=== PATIENT | female | born 1955 | race Caucasian/White ===

== ENCOUNTER 2018-12-30 08:00 | Outpatient (CLI) | payer MEDICAID | END 2018-12-30 10:00 | disposition home or self-care (01) | LOC: D.MAMMO 08:00 | PROVIDERS: ATTEND Family Medicine | DX: Z12.31 Encounter for screening mammogram for malignant neoplasm of breast (principal) ==

== ENCOUNTER 2019-02-17 09:00 | Outpatient (CLI) | payer MEDICAID | END 2019-02-17 10:00 | disposition home or self-care (01) | LOC: D.MAMMO 09:00 | PROVIDERS: ATTEND Family Medicine | DX: R92.8 Other abnormal and inconclusive findings on diagnostic imaging of breast (principal) ==

== ENCOUNTER 2020-03-01 09:57 | Day surgery (SDC) | payer MEDICAID ==
[~2020-03-01] VITALS: Ht 170.2 cm; Wt 125.0 kg
[2020-03-01 10:22] LABS: HEMATOCRIT 46.2 % (36.0-48.0); HEMOGLOBIN 15.7 g/dL (12-16); MCH 30.5 pg (26.0-34.0); MCV 89.7 fL (80.0-100.0); MEAN PLATELET VOLUME 9.1 fL (7.4-10.4); RBC 5.15 10x6/uL (4.00-5.40); RDW 13.4 % (11.5-14.5); WBC 8.2 10x3/uL (4.8-10.8)
[2020-03-01 10:28] LABS: ANION GAP 11.2 mmol/L (8-16); CALCIUM 8.8 mg/dL (8.5-10.1); CARBON DIOXIDE 27.5 mmol/L (21.0-32.0); POTASSIUM - SERUM 3.7 mmol/L (3.5-5.1)
[2020-03-01 11:17] VITALS: BP 175/83; Ht 170.2 cm; Wt 125.0 kg
[2020-03-01] MEDS ORDERED: EFFEXOR XR150 MG PO (11:22)
[2020-03-01] MEDS ORDERED: HYDROCHLOROTH12.5 M1 PO (11:22)
--- NOTE | 2020-03-01 15:48 | NUR ---
1249 IV DC'D. CATHETER TIP INTACT. NO BLEEDING AT SITE. BANDAID APPLIED. DISCHARGE INSTRUCTIONS REVIEWED WITH PATIENT WHO VOICES UNDERSTANDING OF INSTRUCTIONS.
--- NOTE | 2020-03-02 08:39 | OP ---
PATIENT NAME: RAY SANON MEDICAL RECORD: [id number] :57 LOCATION:D.OPS ADMISSION DATE: SURGEON: ALYSA FARRIS DO DATE OF OPERATION: 03/01/2020 PROCEDURE: Colonoscopy with polypectomy. INDICATIONS FOR PROCEDURE: Screening for malignant neoplasms, family history positive for colon cancer and history of colon polyps. SCOPE: Olympus video pediatric colonoscope. MEDICATIONS: Propofol 450 mg IV per anesthesia. WITHDRAWAL TIME: 22 minutes. ESTIMATED BLOOD LOSS: Minimal. COMPLICATIONS: None. FINDINGS: Informed consent was given. The patient was made comfortable with the above medication. After reaching an adequate level of sedation by slow IV push, the patient was placed on her left side. A digital rectal examination was performed and was normal. The endoscope was then advanced under direct visualization through the rectum to the cecum, confirmed by the presence of the appendiceal orifice and ileocecal valve. The endoscope was slowly withdrawn and the mucosa was carefully examined. The prep quality was good. There were 5 polyps visualized on today's examination. Two were located in the ascending colon. They were benign appearing and sessile and ranged in size from 3-5 mm in diameter. They were both removed using a hot snare. In the transverse colon, there were two separate benign-appearing sessile polyps, which ranged in size from 3-5 mm in diameter. They were both removed using hot snare. In the descending colon, there was a benign appearing sessile polyp, which measured approximately 7 mm in diameter. It was removed using a hot snare. Retroflexion was performed in the rectum with visualization of grade I internal hemorrhoids without bleeding. The endoscope was withdrawn from the patient. The patient tolerated the procedure well and there were no complications. IMPRESSION: 1. Five polyps as described above, removed using a hot snare. 2. Grade I internal hemorrhoids without bleeding. PLAN AND RECOMMENDATIONS: 1. Discharge home when recovery parameters are met. 2. Follow up biopsy specimen results. 3. High fiber diet. 4. Continue current medications. 5. Recall colonoscopy in 3 years. TRANSINT:[id number] Voice Confirmation ID: [id number] DOCUMENT ID: [id number] OPERATIVE REPORT [id number] RAY SANON ALYSA FARRIS DO at 0839 CC: [id number] DICTATION DATE: 03/01/20 1212 GATE WATCH: 03/01/202027 [facility] 03/01/20 [facility] [address] [place] [address]
== END 2020-03-01 13:07 | disposition home or self-care (01) ==
LOC: D.OPS 09:57
PROVIDERS: Anesthesiology; ATTEND Internal Medicine Gastroenterology
DX: Z80.0 Family history of malignant neoplasm of digestive organs (principal); Z86.010 Personal history of colon polyps; K63.5 Polyp of colon; K64.0 First degree hemorrhoids; Z12.11 Encounter for screening for malignant neoplasm of colon

== ENCOUNTER 2020-10-04 11:15 | Outpatient (CLI) | payer BC ==
[2020-03-01 11:17] VITALS: BMI 43.2
[~2020-10-04 11:15] MED LIST: EFFEXOR XR150 MG PO; HYDROCHLOROTH12.5 M1 PO
== END 2020-10-04 23:59 | disposition home or self-care (01) ==
LOC: D.MAMMO 11:15
PROVIDERS: ATTEND Family Medicine
DX: Z12.31 Encounter for screening mammogram for malignant neoplasm of breast (principal)